=== PATIENT | male | born 1990 | race African-American/Black ===

== ENCOUNTER 2024-08-30 20:24 | Emergency (ER) | payer MEDICAID, OTHER ==
[~2024-08-30] VITALS: Ht 167.6 cm; Wt 84.0 kg
[2024-08-30 20:36] VITALS: BP 203/131; PULSE 81; RESP 18; TEMP 36.8; O2SAT 99
== END 2024-08-30 23:32 | disposition left against medical advice (07) ==
LOC: ER 20:24
DX: R06.02 Shortness of breath (principal); Z53.21 Procedure and treatment not carried out due to patient leaving prior to being seen by health care provider

== ENCOUNTER 2024-12-04 19:39 | Inpatient (IN) | payer OTHER ==
[~2024-12-04] VITALS: Ht 182.9 cm; Wt 93.0 kg
[2024-12-04 19:44] VITALS: O2SAT 99
[2024-12-04 20:05] LABS: BASOPHILS % 0.5 % (0.0-2.0); EOSINOPHILS % 5.3 % (0.0-5.0); HEMATOCRIT. 28.7 % (42.0-52.0); HEMOGLOBIN. 9.7 g/dL (14.0-18.0); LYMPHOCYTES % 38.2 % (20.0-50.0); MEAN CORPUSCULAR HGB CONC 33.9 g/dL (31.0-37.0); MEAN CORPUSCULAR VOLUME 88.5 fL (80.0-94.0); MEAN PLATELET VOLUME 8.1 fl (7.4-10.4); MONOCYTES % 9.5 % (2.0-8.0); NEUTROPHILS % 46.5 % (40.0-76.0); PLATELET 209 x1000/uL (130-400); RED BLOOD CELL COUNT 3.24 mill/uL (4.7-6.1); WHITE BLOOD COUNT 3.2 x1000/uL (4.5-11.0)
[2024-12-04 20:12] LABS: CHLORIDE 100 mEq/L (98-107); POTASSIUM 4.2 mEq/L (3.5-5.1); SODIUM 141 mEq/L (136-145)
[2024-12-04 20:13] LABS: CARBON DIOXIDE 32 mEq/L (21-32)
[2024-12-04 20:14] LABS: CALCIUM 8.8 mg/dL (8.7-10.4)
[2024-12-04 20:16] LABS: INR 1.1; PROTHROMBIN TIME 11.3 sec (9.6-11.0)
[2024-12-04 20:18] LABS: GLUCOSE 129 mg/dL (70-105)
[2024-12-04 20:19] LABS: UREA NITROGEN BLOOD 28 mg/dL (9-23)
[2024-12-04 20:20] LABS: TROPONIN I HIGH SENSITIVITY 20 ng/L (3.0-53)
[2024-12-04 20:24] LABS: CREATININE 7.1 mg/dL (0.6-1.3)
[2024-12-04] MEDS: NICARDIPINE 40MG/200ML PREMIX 200 ML IV STA (20:32)
[2024-12-04] MEDS ORDERED: ACETAMINOPHEN 325MG TABLET PO PRN (22:30)
[2024-12-04] MEDS ORDERED: ONDANSETRON HCL 4MG/2ML INJ IV PRN (22:30)
[2024-12-04] MEDS ORDERED: DOCUSATE SODIUM 100MG CAPSULE PO PRN (22:30)
[2024-12-04] MEDS ORDERED: GUAIFENESIN 200MG/10ML SUGAR FREE UDC PO PRN (22:30)
[2024-12-04] MEDS ORDERED: CLONIDINE 0.1MG TABLET PO PRN (22:30)
[2024-12-04] MEDS ORDERED: IPRATROPIUM/ALBUTEROL 0.5-3(2.5)MG/3ML NEB HHN PRN (22:30)
[2024-12-04] MEDS: AMLODIPINE 5MG TABLET PO SCH (23:02)
[2024-12-05] MEDS: FUROSEMIDE 40MG/4ML VIAL IVP SCH (02:04)
[2024-12-05 04:53] LABS: CLARITY URINE CLEAR (CLEAR); COLOR URINE YELLOW (YELLOW); GLUCOSE URINE TRACE (NEGATIVE); KETONES URINE NEGATIVE (NEGATIVE); LEUKOCYTE ESTERASE URINE NEGATIVE (NEGATIVE); NITRITE URINE NEGATIVE (NEGATIVE); OCCULT BLOOD URINE TRACE (NEGATIVE); PH URINE >=9.0 (4.5-8.0); PROTEIN URINE 2+ (NEGATIVE); SPECIFIC GRAVITY URINE 1.008 (1.005-1.030); UROBILINOGEN URINE 0.2 E.U./dL (0.2-1.0)
[2024-12-05 04:57] LABS: *AMPHETAMINES SCREEN URINE NEGATIVE (NEGATIVE); *BENZODIAZEPINES SCREEN URINE NEGATIVE (NEGATIVE)
[2024-12-05 04:58] LABS: *BARBITURATES SCREEN URINE NEGATIVE (NEGATIVE); *COCAINE SCREEN URINE NEGATIVE (NEGATIVE); CANNABINOID URINE SCREEN PRESUMPTIVE POSITIVE (NEGATIVE); ECSTASY MDMA SCREEN URINE NEGATIVE (NEGATIVE); METHADONE URINE SCREEN NEGATIVE (NEGATIVE); OPIATES URINE SCREEN NEGATIVE (NEGATIVE); PHENCYCLIDINE URINE SCREEN NEGATIVE (NEGATIVE)
[2024-12-05 05:21] LABS: BACTERIA URINE NONE SEEN; FINE GRANULAR CASTS URINE 0-5 /lpf; RBC URINE NONE SEEN /hpf (0-2); SQUAMOUS EPITHELIAL CELL URINE RARE /lpf (RARE/1+); WBC URINE 0-2 /hpf (0-2)
[2024-12-05] MEDS: AMLODIPINE 5MG TABLET PO SCH (12:35)
[2024-12-05] MEDS: HYDRALAZINE HCL 25MG TABLET PO SCH (16:11)
[2024-12-05 18:12] VITALS: BP 182/123; PULSE 86; RESP 18; TEMP 36.6; O2SAT 99
== END 2024-12-05 22:19 | disposition left against medical advice (07) | DRG 199 ==
LOC: ER 19:39 → EDBEDREQ 21:38 → EDBEDREQSVC 12-05 16:13 → ENRESERV 12-05 16:23 → 7WST 12-05 18:09
PROVIDERS: ADMIT Internal Medicine; ATTEND Internal Medicine
PROC: 5A1D70Z Performance of Urinary Filtration, Intermittent, Less than 6 Hours Per Day (ICD-10-PCS; principal; 2024-12-05)
DX: I16.1 Hypertensive emergency (principal); G92.8 Other toxic encephalopathy; I67.83 Posterior reversible encephalopathy syndrome; I13.2 Hypertensive heart and chronic kidney disease with heart failure and with stage 5 chronic kidney disease, or end stage renal disease; N18.6 End stage renal disease; I50.9 Heart failure, unspecified; D64.9 Anemia, unspecified; F17.210 Nicotine dependence, cigarettes, uncomplicated; Z53.21 Procedure and treatment not carried out due to patient leaving prior to being seen by health care provider; F10.10 Alcohol abuse, uncomplicated; Z59.01 Sheltered homelessness; Z79.899 Other long term (current) drug therapy; F19.10 Other psychoactive substance abuse, uncomplicated
CPT/HCPCS: 36415; 71045; 80048; 80305; 81003; 83735; 83880; 84484; 85025; 86850; 86900; 93005; 93970; 99285; J1940

== ENCOUNTER 2025-02-20 16:58 | Emergency (ER) | payer MEDICAID, OTHER ==
[~2025-02-20] VITALS: Ht 182.9 cm; Wt 79.3 kg
[~2025-02-20 16:58] MED LIST: CLON0.2T PO; EPOE40009 SUBCUT; FURO40TA5 MT; HYDR100T31 PO; NIFE-32 PO
[2025-02-20 16:59] VITALS: O2SAT 98
[2025-02-20 17:07] VITALS: BP 199/124; PULSE 107; RESP 16; TEMP 36.7; O2SAT 99
[2025-02-20 17:51] LABS: BASOPHILS % 1.4 % (0.0-2.0); EOSINOPHILS % 5.3 % (0.0-5.0); HEMATOCRIT. 33.5 % (42.0-52.0); HEMOGLOBIN. 11.1 g/dL (14.0-18.0); LYMPHOCYTES % 33.0 % (20.0-50.0); MEAN PLATELET VOLUME 7.3 fl (7.4-10.4); MONOCYTES % 7.4 % (2.0-8.0); NEUTROPHILS % 52.9 % (40.0-76.0); PLATELET 230 x1000/uL (130-400); RED BLOOD CELL COUNT 3.81 mill/uL (4.7-6.1); RED CELL DISTRIBUTION WIDTH 14.5 % (11.6-14.6)
[2025-02-20 18:02] LABS: UREA NITROGEN BLOOD 50 mg/dL (9-23)
[2025-02-20 18:06] LABS: CREATININE 12.8 mg/dL (0.6-1.3); TROPONIN I HIGH SENSITIVITY 65 ng/L (3.0-53)
[2025-02-20] MEDS ORDERED: FURO40TA5 MT (20:29)
== END 2025-02-20 20:42 | disposition home or self-care (01) ==
LOC: ER 16:58
DX: I12.0 Hypertensive chronic kidney disease with stage 5 chronic kidney disease or end stage renal disease (principal); N18.6 End stage renal disease; Z99.2 Dependence on renal dialysis; Z79.899 Other long term (current) drug therapy; Z76.0 Encounter for issue of repeat prescription
CPT/HCPCS: 36415; 71045; 80048; 83880; 84484; 85025; 93005; 99285; A4606

== ENCOUNTER 2025-05-16 23:46 | Inpatient (IN) | payer MEDICAID, OTHER ==
[~2025-05-16] VITALS: Ht 182.9 cm; Wt 71.7 kg
[2025-05-16 23:48] VITALS: O2SAT 100
[2025-05-16] MEDS: HYDRALAZINE 20MG/ML VIAL IV ONE (23:56)
[2025-05-17] VITALS (17 sets, daily range): BP systolic 173–217; BP diastolic 107–140; PULSE 90–105; RESP 15–33; TEMP 37–37.0296; O2SAT 99–100
[2025-05-17] MEDS: ALBUTEROL (0.083%) 2.5MG/3ML NEB HHN SCH (00:02)
[2025-05-17] MEDS: IPRATROPIUM BROMIDE (0.02%) 0.5MG/2.5ML NEB HHN SCH (00:02)
[2025-05-17] MEDS: CALCIUM GLUCONATE 100MG/ML 10ML VIAL IV ONE (00:10)
[2025-05-17] MEDS: NITROGLYCERIN 50MG PREMIX 250 ML IV ONE (00:12)
[2025-05-17 00:24] LABS: BASOPHILS % 0.7 % (0.0-2.0); EOSINOPHILS % 7.3 % (0.0-5.0); HEMATOCRIT. 38.1 % (42.0-52.0); HEMOGLOBIN. 12.4 g/dL (14.0-18.0); LYMPHOCYTES % 21.9 % (20.0-50.0); MEAN PLATELET VOLUME 8.6 fl (7.4-10.4); MONOCYTES % 5.0 % (2.0-8.0); NEUTROPHILS % 65.1 % (40.0-76.0); PLATELET 284 x1000/uL (130-400); RED BLOOD CELL COUNT 4.27 mill/uL (4.7-6.1); RED CELL DISTRIBUTION WIDTH 14.9 % (11.6-14.6)
[2025-05-17 00:30] LABS: UREA NITROGEN BLOOD 59 mg/dL (9-23)
[2025-05-17 00:31] LABS: ASPARTATE AMINOTRANSFERASE 20 IU/L (<34)
[2025-05-17 00:32] LABS: BILIRUBIN DIRECT 0.1 mg/dL (<=3.0); BILIRUBIN TOTAL 0.4 mg/dL (0.1-1.0); PROTEIN TOTAL 8.0 g/dL (6.0-8.3)
[2025-05-17 00:48] LABS: BG BASE EXCESS 0.2 mmol/L (-2.0-3.0); BG CARBOXYHEMOGLOBIN 1.6 % (0.5-1.5); BG DEOXYHEMOGLOBIN 28.4 % (0.0-5.0); BG FRACTION INSPIRED OXYGEN 30; BG HCO3 ACT 25.5 mmol/L (21.0-28.0); BG METHEMOGLOBIN 0.3 % (0.5-1.5); BG OXYGEN SATURATION 71.0 % (94.0-98.0); BG OXYHEMOGLOBIN 69.7 % (94.0-98.0); BG PCO2 43.8 mmHg (35.0-48.0); BG PH 7.383 (7.350-7.450); BG PO2 40.0 mmHg (83.0-108.0); BG SAMPLE SITE LEFT BRACHIAL; BG TOTAL HEMOGLOBIN 12.5 g/dL (13.5-17.5); BG VENT MODE MASK - BIPAP
[2025-05-17 00:51] LABS: CREATININE 12.8 mg/dL (0.6-1.3); INR 1.1; TROPONIN I HIGH SENSITIVITY 159 ng/L (3.0-53)
[2025-05-17] MEDS ORDERED: NITROGLYCERIN 50MG PREMIX 250 ML IV PRN (02:30)
[2025-05-17] MEDS ORDERED: IPRATROPIUM/ALBUTEROL 0.5-3(2.5)MG/3ML NEB HHN PRN (02:30)
[2025-05-17] MEDS ORDERED: ACETAMINOPHEN 325MG TABLET PO PRN (02:30)
[2025-05-17] MEDS ORDERED: ONDANSETRON HCL 4MG/2ML INJ IV PRN (02:30)
[2025-05-17] MEDS ORDERED: GUAIFENESIN 200MG/10ML SUGAR FREE UDC PO PRN (02:30)
[2025-05-17] MEDS: HYDRALAZINE 20MG/ML VIAL IV PRN (03:54)
[2025-05-17] MEDS: FUROSEMIDE 40MG/4ML VIAL IVP NR (03:54)
[2025-05-17] MEDS: CLONIDINE 0.1MG TABLET PO PRN (06:32)
[2025-05-17] MEDS: ACETAMINOPHEN 325MG TABLET PO PRN (06:32)
[2025-05-17] MEDS: NITROGLYCERIN 50MG PREMIX 250 ML IV PRN (07:53)
[2025-05-17] MEDS: HYDRALAZINE HCL 50MG TABLET PO SCH (08:39)
[2025-05-17] MEDS: LOSARTAN 50 MG TABLET PO SCH (08:40)
[2025-05-17] MEDS: CARVEDILOL 12.5MG TABLET PO SCH (08:41)
[2025-05-17] MEDS: AMLODIPINE 10MG TABLET PO SCH (08:41)
[2025-05-17 08:47] LABS: INFLUENZA TYPE A Presumptive Negative (Pres. Neg.); INFLUENZA TYPE B Presumptive Negative (Pres. Neg.)
[2025-05-17 08:48] LABS: RESPIRATORY SYNCYTIAL VIRUS Not Detected (Not Detectd)
[2025-05-17] MEDS: ENOXAPARIN 30MG/0.3ML SYR SUBCUT SCH (09:00)
[2025-05-17 09:15] LABS: CLARITY URINE CLEAR (CLEAR); COLOR URINE YELLOW (YELLOW); GLUCOSE URINE NEGATIVE (NEGATIVE); KETONES URINE NEGATIVE (NEGATIVE); LEUKOCYTE ESTERASE URINE NEGATIVE (NEGATIVE); NITRITE URINE NEGATIVE (NEGATIVE); OCCULT BLOOD URINE TRACE (NEGATIVE); PH URINE 8.5 (4.5-8.0); PROTEIN URINE 2+ (NEGATIVE); SPECIFIC GRAVITY URINE 1.012 (1.005-1.030); UROBILINOGEN URINE 0.2 E.U./dL (0.2-1.0)
[2025-05-17] MEDS: PANTOPRAZOLE SODIUM 40 MG/VIAL IV SCH (09:30)
[2025-05-17 09:55] LABS: *AMPHETAMINES SCREEN URINE NEGATIVE (NEGATIVE); *BARBITURATES SCREEN URINE NEGATIVE (NEGATIVE); *BENZODIAZEPINES SCREEN URINE NEGATIVE (NEGATIVE); *COCAINE SCREEN URINE NEGATIVE (NEGATIVE); CANNABINOID URINE SCREEN NEGATIVE (NEGATIVE); ECSTASY MDMA SCREEN URINE NEGATIVE (NEGATIVE); METHADONE URINE SCREEN NEGATIVE (NEGATIVE); OPIATES URINE SCREEN NEGATIVE (NEGATIVE); PHENCYCLIDINE URINE SCREEN NEGATIVE (NEGATIVE)
[2025-05-17 09:57] LABS: BACTERIA URINE NONE SEEN; RBC URINE 0-2 /hpf (0-2); SQUAMOUS EPITHELIAL CELL URINE RARE /lpf (RARE/1+); WBC URINE 0-2 /hpf (0-2); YEAST URINE NONE SEEN
[2025-05-17 12:09] LABS: BASOPHILS % 0.6 % (0.0-2.0); EOSINOPHILS % 3.2 % (0.0-5.0); HEMATOCRIT. 31.5 % (42.0-52.0); HEMOGLOBIN. 10.6 g/dL (14.0-18.0); LYMPHOCYTES % 12.9 % (20.0-50.0); MEAN PLATELET VOLUME 8.1 fl (7.4-10.4); MONOCYTES % 5.8 % (2.0-8.0); NEUTROPHILS % 77.5 % (40.0-76.0); PLATELET 232 x1000/uL (130-400); RED BLOOD CELL COUNT 3.51 mill/uL (4.7-6.1); RED CELL DISTRIBUTION WIDTH 14.4 % (11.6-14.6)
[2025-05-17 12:26] LABS: CREATINE KINASE MB FRACTION 2.8 ng/mL (0.5-3.6)
[2025-05-17 12:28] LABS: PROTEIN TOTAL 6.3 g/dL (6.0-8.3); TRIGLYCERIDE 82 mg/dL (0-150); UREA NITROGEN BLOOD 61 mg/dL (9-23)
[2025-05-17 12:29] LABS: ASPARTATE AMINOTRANSFERASE 13 IU/L (<34); LDL CHOLESTEROL 71 mg/dL (5-100)
[2025-05-17 12:30] LABS: BILIRUBIN TOTAL 0.4 mg/dL (0.1-1.0); PHOSPHORUS 6.3 mg/dL (2.5-4.9); T4 FREE 1.11 ng/dL (0.89-1.76)
[2025-05-17] MEDS ORDERED: SEVELAMER CARBONATE 800 MG TABLET PO SCH (12:30)
[2025-05-17 12:38] LABS: CREATININE 14.2 mg/dL (0.6-1.3)
[2025-05-17 12:39] LABS: TROPONIN I HIGH SENSITIVITY 173 ng/L (3.0-53)
[2025-05-17] MEDS ORDERED: MONTELUKAST SODIUM 10MG TABLET PO SCH (17:00)
== END 2025-05-17 13:57 | disposition left against medical advice (07) | DRG 194 ==
LOC: ER 05-17 00:16 → EDBEDREQ 05-17 02:05 → EDBEDREQSVC 05-17 02:05 → EDBEDREQDT 05-17 02:05 → EDBEDREQTM 05-17 02:05 → ENRESERV 05-17 02:20 → MICUSO 05-17 03:01
PROVIDERS: ADMIT Student in an Organized Health Care Education/Training Program; ATTEND Student in an Organized Health Care Education/Training Program
PROC: 5A09357 Assistance with Respiratory Ventilation, Less than 24 Consecutive Hours, Continuous Positive Airway Pressure (ICD-10-PCS; principal; 2025-05-16)
PROC: 5A09357 Assistance with Respiratory Ventilation, Less than 24 Consecutive Hours, Continuous Positive Airway Pressure (ICD-10-PCS; 2025-05-17)
DX: I13.2 Hypertensive heart and chronic kidney disease with heart failure and with stage 5 chronic kidney disease, or end stage renal disease (principal); J96.01 Acute respiratory failure with hypoxia; J18.9 Pneumonia, unspecified organism; D72.10 Eosinophilia, unspecified; I21.A1 Myocardial infarction type 2; J81.1 Chronic pulmonary edema; N18.6 End stage renal disease; I50.33 Acute on chronic diastolic (congestive) heart failure; I16.1 Hypertensive emergency; D64.9 Anemia, unspecified; E11.22 Type 2 diabetes mellitus with diabetic chronic kidney disease; R65.10 Systemic inflammatory response syndrome (SIRS) of non-infectious origin without acute organ dysfunction; Z99.2 Dependence on renal dialysis
CPT/HCPCS: 36415; 36600; 71045; 80048; 80053; 80061; 80076; 80305; 80320; 81003; 82140; 82375; 82550; 82553; 82805; 83036; 83605; 83735; 83880; 84100; 84439; 84443; 84484; 85025; 85379; 87420; 87804; 93005; 94640; 94660; 94664; 99291; J0360; J0612; J1650; J1938; J2470; J3490; G0480